=== PATIENT | female | born 1970 | race African-American/Black ===

== ENCOUNTER 2024-02-17 07:13 | Observation (INO) | payer BC ==
[2024-02-17] MEDS ORDERED: Acetaminophen 325 MG TAB PO PRN (09:46)
[2024-02-17] MEDS ORDERED: Ondansetron ODT 4 MG TAB PO PRN (09:46)
[2024-02-17] MEDS ORDERED: Ondansetron PF 4 MG/2 ML Vial IVP PRN (09:46)
[2024-02-17] MEDS: Morphine 2 MG/ML VIAL SLOW IVP PRN (10:42)
[2024-02-17] MEDS: Enoxaparin 40 MG (0.4 mL) SYRINGE SC SCH (10:45)
[2024-02-17] MEDS: Thiamine HCl 200 MG/2 ML VIAL SLOW IVP SCH (10:48)
[2024-02-17 10:49] VITALS: BMI 32.7
[2024-02-17 10:50] LABS: ALT (SGPT) 39 U/L (8-55); AST (SGOT) 54 U/L (5-34); Albumin 3.4 g/dL (3.5-5.0); Alkaline Phosphatase 99 U/L (40-110); Anion Gap 12 mmol/L (10-20); BUN (Urea Nitrogen) 5 mg/dL (9.8-20.1); Calc. Creatinine Clearance 151 mL/min (70-130); Calcium 8.9 mg/dL (7.8-10.44); Carbon Dioxide 26 mmol/L (22-29); Chloride 105 mmol/L (98-107); Estimated GFR 106; Globulin 3.7 g/dL (2.4-3.5); Glucose 93 mg/dL (70-105); Potassium 4.3 mmol/L (3.5-5.1); Protein, Total 7.1 g/dL (6.0-8.3); Sodium 139 mmol/L (136-145); Triglycerides 95 mg/dL (Less than 150)
[2024-02-17] MEDS: Nicotine 14 MG PATCH TD SCH (12:40)
[2024-02-17] MEDS: Morphine 4 MG/ML VIAL SLOW IVP PRN (15:24)
[2024-02-17] MEDS: Lactated Ringer's 1,000 ML IV SCH (15:28)
[2024-02-17] MEDS: Famotidine/PF 20 mg/2ml Vial SLOW IVP SCH (20:17)
[2024-02-18 05:08] LABS: #Basophils Less than 0.03 10x3/uL (0.0-0.2); %Basophils 0.3 % (0.0-1.0); %Eosinophils 1.7 % (0.0-10.0); %Lymphocytes 39.5 % (21.0-51.0); %Monocytes 7.8 % (0.0-10.0); %Neutrophils 50.7 % (42.0-75.0); Hematocrit 36.4 % (36.0-47.0); Hemoglobin 12.7 g/dL (12.0-16.0); Mean Corpuscular HGB CONC 34.9 g/dL (32.0-36.0); Mean Corpuscular Hemoglobin 35.7 pg (27.0-31.0); Mean Corpuscular Volume 102.2 fL (78.0-98.0); Mean Platelet Volume 10.2 fL (7.4-10.4); Platelet Count 129 10x3/uL (130-400); RBC Distribution Width 13.4 % (11.5-14.5); Red Blood Cell (RBC) Count 3.56 mill/uL (4.20-5.40)
[2024-02-18 05:14] LABS: ALT (SGPT) 27 U/L (8-55); AST (SGOT) 35 U/L (5-34); Albumin 2.9 g/dL (3.5-5.0); Alkaline Phosphatase 85 U/L (40-110); Anion Gap 11 mmol/L (10-20); BUN (Urea Nitrogen) 6 mg/dL (9.8-20.1); Calc. Creatinine Clearance 161 mL/min (70-130); Calcium 8.6 mg/dL (7.8-10.44); Carbon Dioxide 25 mmol/L (22-29); Chloride 105 mmol/L (98-107); Estimated GFR 108; Glucose 84 mg/dL (70-105); Protein, Total 5.9 g/dL (6.0-8.3); Sodium 137 mmol/L (136-145)
[2024-02-18] MEDS: Enoxaparin 40 MG (0.4 mL) SYRINGE SC SCH (09:36)
[2024-02-18 16:27] VITALS: BP 150/79; TEMP 99.1
== END 2024-02-18 16:10 | disposition home or self-care (01) ==
LOC: T4-B 07:44
PROVIDERS: ADMIT Student in an Organized Health Care Education/Training Program; ATTEND Student in an Organized Health Care Education/Training Program
DX: K85.90 Acute pancreatitis without necrosis or infection, unspecified (principal); E78.5 Hyperlipidemia, unspecified; E55.9 Vitamin D deficiency, unspecified; E78.1 Pure hyperglyceridemia; E66.9 Obesity, unspecified; Z79.899 Other long term (current) drug therapy; Z88.0 Allergy status to penicillin; F17.210 Nicotine dependence, cigarettes, uncomplicated; F10.10 Alcohol abuse, uncomplicated; Y90.9 Presence of alcohol in blood, level not specified
CPT/HCPCS: 36415; 80053; 84478; 85025; 96372; 96374; 96375; 96376; G0378; J1650; J2272; J3411; J3490; J7120